=== PATIENT | female | born 2005 | race Caucasian/White ===

== ENCOUNTER 2024-03-23 12:53 | Emergency (ER) | payer MEDICARE, SELFPAY ==
--- NOTE | 2024-03-23 13:33 | ED.GENMED ---
History of Present Illness
<Moisés Conrad PA-C - Last Filed: 03/24/24 10:08>
General
Chief Complaint: Abdominal Pain
Time Seen by Provider: 03/23/24 13:04
History of Present Illness
History of Present Illness:
18-year-old female presents to the emergency department for evaluation of intractable nausea vomiting and diarrhea beginning last night. No ill contacts at home. Reports generalized abdominal cramping. No fevers. No history of abdominal
surgeries.
Review of Systems
<Moisés Conrad PA-C - Last Filed: 03/24/24 10:08>
Review of Systems
Allergies reviewed?: Yes
All Other Systems: ROS reviewed and negative except as documented in HPI and ROS
Phy Exam
<Moisés Conrad PA-C - Last Filed: 03/24/24 10:08>
Physical Exam
Physical Exam:
GEN: Well appearing, NAD, WDWN
HEENT: Oral mucosa moist, no scleral icterus
Cardiac: Regular rate
Lung: No respiratory distress, no tachypnea
Abdomen: Soft, mild generalized tenderness to the lower abdomen, no rigidity
MSK: No gross deformity or injuries
Skin: Good color, no pallor or jaundice, no rashes
Neuro: AO x3, moves all extremities freely
Psych: Calm, cooperative
Course
<Moisés Conrad PA-C - Last Filed: 03/24/24 10:08>
Orders/Labs/Results
Orders:
Orders
03/23/24 13:34
0.9% Sodium Chloride 1000 ml [Nss] 1,000 ml IV BOLUS
Ondansetron Injectable [Zofran] 4 mg IV NOW STA
03/23/24 13:43
Complete Blood Count/With Diff Urgent
Comprehensive Metabolic Panel Urgent
Lipase Urgent
03/23/24 14:44
Urinalysis Reflex To Culture Urgent
Date Specimen was Collected: 03/23/24
Time Specimen was Collected: 14:42
Urine Microscopic Reflex Cult Urgent
Norovirus by PCR Urgent
RADHA Source: Feces/Stool
Specimen Description:
Date Specimen was Collected: 03/23/24
Time Specimen was Collected: 14:42
03/23/24 14:51
Metoclopramide [Reglan] 10 mg IV NOW STA
03/23/24 15:34
Ketorolac [Toradol] 15 mg IV NOW STA
Abnormal Lab Results
03/23/24 03/23/24
13:43 14:44
WBC 11.3 H 10^3/uL
(4.8-10.8)
MPV 10.9 H fL
(7.4-10.4)
Absolute Neuts (auto) 10.6 H 10^3/uL
(1.4-6.5)
Absolute Lymphs (auto) 0.2 L 10^3/uL
(1.2-3.4)
Neutrophils % 93.0 H %
(42.2-75.2)
Lymphocytes % 1.5 L %
(20.5-51.1)
Carbon Dioxide 20 L mmol/L
(22-30)
Glucose 113 H mg/dl
(70-99)
Total Bilirubin 2.5 H mg/dl
(0.2-1.3)
Urine Ketones 3+ A
(Negative)
Urine RBC 3-6 A /HPF
(0-2)
Urine Bacteria (Reflex) Few A
(Negative)
Urine Albumin (Reflex) 1+ A
(Neg - Trace)
03/23/24 13:43
03/23/24 13:43
Vital Signs
Initial and Last Documented VS:
Initial Vital Signs
Temp Pulse Resp Pulse Ox
99.5 F 93 18 100
03/23/24 12:55 03/23/24 12:55 03/23/24 12:55 03/23/24 12:55
Last Documented Vital Signs
Temp Pulse Resp BP Pulse Ox
99.5 F 101 16 105/54 98
03/23/24 12:55 03/23/24 17:00 03/23/24 17:00 03/23/24 17:00 03/23/24 17:00
<Timi Howard Jr., PA-C - Last Filed: 03/23/24 16:54>
Orders/Labs/Results
Orders:
Orders
03/23/24 13:34
0.9% Sodium Chloride 1000 ml [Nss] 1,000 ml IV BOLUS
Ondansetron Injectable [Zofran] 4 mg IV NOW STA
03/23/24 13:43
Complete Blood Count/With Diff Urgent
Comprehensive Metabolic Panel Urgent
Lipase Urgent
03/23/24 14:44
Urinalysis Reflex To Culture Urgent
Date Specimen was Collected: 03/23/24
Time Specimen was Collected: 14:42
Urine Microscopic Reflex Cult Urgent
Norovirus by PCR Urgent
RADHA Source: Feces/Stool
Specimen Description:
Date Specimen was Collected: 03/23/24
Time Specimen was Collected: 14:42
03/23/24 14:51
Metoclopramide [Reglan] 10 mg IV NOW STA
03/23/24 15:34
Ketorolac [Toradol] 15 mg IV NOW STA
Abnormal Lab Results
03/23/24 03/23/24
13:43 14:44
WBC 11.3 H 10^3/uL
(4.8-10.8)
MPV 10.9 H fL
(7.4-10.4)
Absolute Neuts (auto) 10.6 H 10^3/uL
(1.4-6.5)
Absolute Lymphs (auto) 0.2 L 10^3/uL
(1.2-3.4)
Neutrophils % 93.0 H %
(42.2-75.2)
Lymphocytes % 1.5 L %
(20.5-51.1)
Carbon Dioxide 20 L mmol/L
(22-30)
Glucose 113 H mg/dl
(70-99)
Total Bilirubin 2.5 H mg/dl
(0.2-1.3)
Urine Ketones 3+ A
(Negative)
Urine RBC 3-6 A /HPF
(0-2)
Urine Bacteria (Reflex) Few A
(Negative)
Urine Albumin (Reflex) 1+ A
(Neg - Trace)
03/23/24 13:43
03/23/24 13:43
Vital Signs
Initial and Last Documented VS:
Initial Vital Signs
Temp Pulse Resp Pulse Ox
99.5 F 93 18 100
03/23/24 12:55 03/23/24 12:55 03/23/24 12:55 03/23/24 12:55
Last Documented Vital Signs
Temp Pulse Resp BP Pulse Ox
99.5 F 101 16 105/54 98
03/23/24 12:55 03/23/24 17:00 03/23/24 17:00 03/23/24 17:00 03/23/24 17:00
<Timi Howard Jr., PA-C - Last Filed: 03/23/24 16:54>
*Critical Care Note
Total Time (30-74mins, 75-104mins- exclusive of procedures): Not Applicable
<Timi Howard Jr., PA-C - Last Filed: 03/23/24 16:54>
Update Note
Update Note:
1650: Ed Howard Pa-C patient reassessed very comfortable. Stable for outpatient management return precautions given.
ED Attending Note
<Moisés Conrad PA-C - Last Filed: 03/24/24 10:08>
-
Portions of this chart may have been created with voice recognition software.� Occasional wrong word or��sound alike� substitutions may have occurred due to the inherent limitations of voice recognition software.
Discharge Plan
Departure
Patient Disposition: Home (Routine Discharge)
Date of Disposition: 03/23/24
Time of Disposition: 16:52
Patient with high blood pressure during this ER visit?: No
Condition: Good
Covid-19: Not Applicable
Discharge Problem:
Nausea, vomiting, and diarrhea
Instructions: Nausea and Vomiting, Adult (DC)
Prescriptions:
New
ondansetron 4 mg tablet,disintegrating
4 mg PO Q6H PRN (Reason: nausea and vomiting) Qty: 7 0RF
Referrals:
Ashtyn Diaz CRNP [Family Provider] -
Activity Restrictions/Additional Instructions:
You came to the emergency department today with concerns of nausea vomiting diarrhea. This is likely a stomach virus. Please take the Zofran as needed and slowly escalate your diet over the next few days. Return to the emergency department any
worsening, new or concerning symptoms.
Interventions
Interventions:
*Risk Screen - Suicide Last Done: 03/23/24 12:55
*General Assessment Last Done: 03/23/24 12:55
*Neglect/Abuse Screening Last Done: 03/23/24 12:55
ED- Fall Risk Assessment Last Done: 03/23/24 14:00
*ED COVID-19 Vaccine History Last Done: 03/23/24 12:55
*Nursing Disposition Last Done: 03/23/24 17:36
IO-Tcraow-Nxxojnnxsa Assessment Last Done: 03/23/24 14:00
Discharge Date and Time
Discharge Date/Time: 03/23/24 17:37
Print Language: MALTESE
[2024-03-23] MEDS: NSS 1000 IV (13:41)
[2024-03-23] MEDS: ZOFRAN 4 MG IV (13:41)
[2024-03-23 14:00] VITALS: BP 108/72
[2024-03-23 14:11] LABS: % Basophils 0.2 % (0-2); % Immature Granulocytes 0.4 % (0-0.5); % Lymphocytes 1.5 % (20.5-51.1); % Monocytes 4.9 % (1.7-9.3); Absolute Lymphocytes 0.2 10^3/uL (1.2-3.4); Absolute Monocytes 0.6 10^3/uL (0.1-0.6); Absolute Neutrophils 10.6 10^3/uL (1.4-6.5); Hematocrit 39.5 % (37.0-47.0); Hemoglobin 13.5 g/dL (12.0-16.0); Mean Corp Hgb Conc. 34.2 g/dL (33.0-37.0); Mean Corpuscular Hgb 29.5 pg (27.0-31.0); Mean Corpuscular Volume 86.4 fL (81.0-99.0); Mean Platelet Volume 10.9 fL (7.4-10.4); Nucleated Red Blood Cells % 0 %; Platelet Count 274 10^3/uL (130-400); Red Blood Cell Count 4.57 10^6/uL (4.20-5.40); Red Cell Dist. Width 12.4 % (11.5-14.5); White Blood Cell Count 11.3 10^3/uL (4.8-10.8)
[2024-03-23 14:27] LABS: ALT (SGPT) 18 U/L (0-35); AST (SGOT) 22 U/L (14-36); Alkaline Phosphatase 58 U/L (38-126); Blood Urea Nitrogen 15 mg/dl (7-17); Calcium 10.1 mg/dl (8.4-10.2); Carbon Dioxide 20 mmol/L (22-30); Chloride 106 mmol/L (98-107); Estimated Creatinine Clearance 120 ml/min; Glucose 113 mg/dl (70-99); Lipase 40 U/L (23-300); Potassium 3.6 mmol/L (3.5-5.1); Sodium 140 mmol/L (135-145); Total Bilirubin 2.5 mg/dl (0.2-1.3); Total Protein 7.6 g/dl (6.3-8.2); eGFR > 60.00
[2024-03-23 14:30] VITALS: BP 111/55
[2024-03-23 14:58] LABS: Urine Albumin 1+ (Neg - Trace); Urine Bilirubin Negative (Negative); Urine Character Clear (Clear); Urine Color Yellow; Urine Glucose Negative (Negative); Urine Ketone 3+ (Negative); Urine Leukocyte Negative (Negative); Urine Nitrite Negative (Negative); Urine Occult Blood Negative (Negative); Urine Specific Gravity 1.015 (<1.030); Urine Urobilinogen Negative (Neg - 1+)
[2024-03-23 15:07] LABS: Urine Mucus Moderate; Urine Squamous Cell >30 /LPF (Few)
[2024-03-23 15:08] LABS: Urine Bacteria Few (Negative)
--- NOTE | 2024-03-23 15:20 | EDRN ---
Pt stated that she has just started her menses and has lower back pain and requested some pain medication.
[2024-03-23] MEDS: REGLAN 10 MG IV (15:27)
[2024-03-23 15:30] VITALS: BP 114/71
[2024-03-23] MEDS: TORADOL 15 MG IV (15:45)
--- NOTE | 2024-03-23 16:16 | EDRN ---
Lab called and unknown if micro received stool spec. Micro is no longer here so it will have to be processed tomorrow per lab.
[2024-03-23 17:00] VITALS: BP 105/54
--- NOTE | 2024-03-23 17:35 | EDRN ---
Pt states nausea is greatly decreased at this time.
== END 2024-03-23 17:37 | disposition home or self-care (01) ==
LOC: EMR 12:53
PROVIDERS: Physician Assistant; EMERGENCY PHYSICIAN Emergency Medicine; FAMILY PHYSICIAN Nurse Practitioner
DX: R11.2 Nausea with vomiting, unspecified (principal); R19.7 Diarrhea, unspecified; R10.84 Generalized abdominal pain
CPT/HCPCS: 96374; 96375; 96361; 99284; 80053; 81003; 81015; 83690; 85025; 87798